=== PATIENT | female | born 2000 | race Caucasian/White ===

== ENCOUNTER 2024-04-21 09:28 | Inpatient (IN) | payer OTHER ==
[~2024-04-21] VITALS: Ht 175.3 cm; Wt 115.7 kg
[2024-04-21 10:17] LABS: BASOPHILS % 0.5 % (0.0-2.0); EOSINOPHILS % 2.8 % (0.0-5.0); HEMATOCRIT. 33.1 % (36.0-48.0); LYMPHOCYTES % 31.5 % (20.0-50.0); MEAN CORPUSCULAR HEMOGLOBIN 28.2 pg (28.0-32.0); MEAN CORPUSCULAR HGB CONC 33.3 g/dL (31.0-37.0); MEAN CORPUSCULAR VOLUME 84.6 fL (81.0-99.0); MEAN PLATELET VOLUME 8.7 fl (7.4-10.4); MONOCYTES % 6.7 % (2.0-8.0); NEUTROPHILS % 58.5 % (40.0-76.0); PLATELET 252 x1000/uL (130-400); RED BLOOD CELL COUNT 3.91 mill/uL (4.2-5.4); RED CELL DISTRIBUTION WIDTH 14.1 % (11.6-14.6); WHITE BLOOD COUNT 5.8 x1000/uL (4.5-11.0)
[2024-04-21 10:21] LABS: CHLORIDE 104 mEq/L (98-107); POTASSIUM 3.6 mEq/L (3.5-5.1); SODIUM 140 mEq/L (136-145)
[2024-04-21 10:22] LABS: CALCIUM 7.1 mg/dL (8.7-10.4); CARBON DIOXIDE 29 mEq/L (21-32)
[2024-04-21 10:27] LABS: CREATININE 0.7 mg/dL (0.6-1.0); GLUCOSE 80 mg/dL (70-105); HCG SCREEN NEGATIVE; UREA NITROGEN BLOOD 8 mg/dL (9-23)
[2024-04-21 10:29] LABS: PHOSPHORUS 5.7 mg/dL (2.5-4.9)
[2024-04-21] MEDS: MAGNESIUM 1 G PREMIX 100 ML IV ONE (12:26)
[2024-04-21] MEDS: CALCIUM GLUCONATE 100MG/ML 10ML VIAL IV ONE (12:31)
[2024-04-21 14:32] LABS: ALANINE AMINOTRANSFERASE < 7 IU/L (10-49); ALBUMIN 3.9 g/dL (3.2-4.8); ASPARTATE AMINOTRANSFERASE 22 IU/L (<34); BILIRUBIN DIRECT 0.2 mg/dL (<=3.0); BILIRUBIN TOTAL 0.6 mg/dL (0.1-1.0); PROTEIN TOTAL 6.4 g/dL (6.0-8.3)
[2024-04-21] MEDS ORDERED: ACETAMINOPHEN 325MG TABLET PO PRN (14:45)
[2024-04-21] MEDS ORDERED: MAGNESIUM/ALUMINUM HYDROXIDE/SIMETHICONE 30ML UDC PO PRN (14:45)
[2024-04-21] MEDS ORDERED: CLONIDINE 0.1MG TABLET PO PRN (14:45)
[2024-04-21] MEDS ORDERED: IPRATROPIUM/ALBUTEROL 0.5-3(2.5)MG/3ML NEB NEB PRN (14:45)
[2024-04-21] MEDS ORDERED: ONDANSETRON HCL 4MG/2ML INJ IV PRN (14:45)
[2024-04-21] MEDS ORDERED: LEVO175T7 PO (20:18)
[2024-04-21] MEDS ORDERED: CALC0.253 PO (20:18)
[2024-04-21] MEDS ORDERED: CALC200T29 PO (20:18)
[2024-04-21] MEDS ORDERED: CALCIUM GLUCONATE 1GM PREMIX 50 ML IV ONE (20:30)
[2024-04-21] MEDS: CALCIUM 1250MG TABLET (500MG ELEMENTAL CALCIUM) PO SCH (21:27)
[2024-04-21 22:30] VITALS: BP 106/51; PULSE 83; RESP 15; TEMP 98
[2024-04-22] VITALS: BP 101/50; PULSE 75; RESP 18; TEMP 98.1
[2024-04-22 04:00] VITALS: BP 114/65; PULSE 60; RESP 18; TEMP 97.7
[2024-04-22] MEDS: LEVOTHYROXINE SODIUM 175MCG TABLET PO SCH (06:00)
[2024-04-22 07:15] LABS: CALCIUM 6.6 mg/dL (8.7-10.4); CHLORIDE 104 mEq/L (98-107); POTASSIUM 3.6 mEq/L (3.5-5.1); SODIUM 141 mEq/L (136-145)
[2024-04-22 07:16] LABS: CARBON DIOXIDE 28 mEq/L (21-32)
[2024-04-22 07:21] LABS: CREATININE 0.6 mg/dL (0.6-1.0); GLUCOSE 84 mg/dL (70-105); UREA NITROGEN BLOOD 9 mg/dL (9-23)
[2024-04-22 07:25] LABS: BASOPHILS % 0.5 % (0.0-2.0); HEMATOCRIT. 28.2 % (36.0-48.0); HEMOGLOBIN. 9.8 g/dL (12.0-16.0); LYMPHOCYTES % 42.8 % (20.0-50.0); MEAN CORPUSCULAR HEMOGLOBIN 28.6 pg (28.0-32.0); MEAN CORPUSCULAR HGB CONC 34.7 g/dL (31.0-37.0); MEAN CORPUSCULAR VOLUME 82.5 fL (81.0-99.0); MONOCYTES % 6.9 % (2.0-8.0); NEUTROPHILS % 45.8 % (40.0-76.0); PLATELET 195 x1000/uL (130-400); RED BLOOD CELL COUNT 3.42 mill/uL (4.2-5.4); RED CELL DISTRIBUTION WIDTH 14.3 % (11.6-14.6); WHITE BLOOD COUNT 5.8 x1000/uL (4.5-11.0)
[2024-04-22 08:00] VITALS: BP 124/68; PULSE 62; RESP 19; TEMP 98
[2024-04-22] MEDS: CALCITRIOL 0.25MCG CAPSULE PO SCH (09:59)
[2024-04-22] MEDS: CALCIUM 1250MG TABLET (500MG ELEMENTAL CALCIUM) PO SCH (10:00)
[2024-04-22] MEDS: MAGNESIUM 2 G PREMIX 50 ML IV NR (11:03)
[2024-04-22] MEDS: CALCIUM GLUCONATE 1GM PREMIX 50 ML IV NR ×3 (11:51→18:07)
[2024-04-22 12:00] VITALS: BP 119/65; PULSE 72; RESP 19; TEMP 97.8
[2024-04-22] MEDS: CALCITRIOL 1MCG/ML AMP IV NR (14:00)
[2024-04-22 16:00] VITALS: BP 121/70; PULSE 68; RESP 21; TEMP 97.7
[2024-04-22] MEDS ORDERED: CALCIUM GLUCONATE IV SCH (16:30)
[2024-04-22] MEDS ORDERED: DEXTROSE 5% IV SCH (16:30)
[2024-04-22] MEDS ORDERED: WATER IV SCH (16:30)
[2024-04-22] MEDS: WATER IV SCH (18:07)
[2024-04-22] MEDS: DEXTROSE 5% IV SCH (18:07)
[2024-04-22] MEDS: CALCIUM GLUCONATE IV SCH (18:07)
[2024-04-22 20:00] VITALS: BP 118/67; PULSE 73; RESP 20; TEMP 97.9
[2024-04-22] MEDS: CALCIUM GLUCONATE 1GM PREMIX 100 ML IV SCH (23:51)
[2024-04-23] VITALS (7 sets, daily range): BP systolic 104–120; BP diastolic 47–70; PULSE 66–71; RESP 17–20; TEMP 97.1–97.9
[2024-04-23 05:50] LABS: CARBON DIOXIDE 30 mEq/L (21-32); CHLORIDE 106 mEq/L (98-107); POTASSIUM 3.6 mEq/L (3.5-5.1); SODIUM 141 mEq/L (136-145)
[2024-04-23 05:56] LABS: CREATININE 0.6 mg/dL (0.6-1.0); GLUCOSE 81 mg/dL (70-105); UREA NITROGEN BLOOD 9 mg/dL (9-23)
[2024-04-23 05:58] LABS: PHOSPHORUS 7.6 mg/dL (2.5-4.9)
[2024-04-23] MEDS: CALCIUM GLUCONATE IV SCH (06:03)
[2024-04-23] MEDS: DEXTROSE 5% IV SCH (06:03)
[2024-04-23] MEDS: WATER IV SCH (06:03)
[2024-04-23 06:24] LABS: BASOPHILS % 0.6 % (0.0-2.0); EOSINOPHILS % 3.3 % (0.0-5.0); HEMATOCRIT. 27.4 % (36.0-48.0); HEMOGLOBIN. 9.5 g/dL (12.0-16.0); LYMPHOCYTES % 45.6 % (20.0-50.0); MEAN CORPUSCULAR HEMOGLOBIN 28.7 pg (28.0-32.0); MEAN CORPUSCULAR HGB CONC 34.6 g/dL (31.0-37.0); MEAN CORPUSCULAR VOLUME 82.7 fL (81.0-99.0); MONOCYTES % 7.1 % (2.0-8.0); NEUTROPHILS % 43.4 % (40.0-76.0); PLATELET 205 x1000/uL (130-400); RED BLOOD CELL COUNT 3.31 mill/uL (4.2-5.4); WHITE BLOOD COUNT 6.1 x1000/uL (4.5-11.0)
[2024-04-23] MEDS ORDERED: CALCITRIOL 0.25MCG CAPSULE PO SCH (09:00)
[2024-04-23] MEDS: CALCIUM 1250MG TABLET (500MG ELEMENTAL CALCIUM) PO SCH (09:25)
[2024-04-23] MEDS ORDERED: CALCIUM GLUCONATE 1GM PREMIX 50 ML IV ONE ×2 (11:30→12:30)
[2024-04-23] MEDS ORDERED: MAGNESIUM 4 G PREMIX 100 ML IV ONE (11:45)
[2024-04-23] MEDS ORDERED: LIDOCAINE HCL 1% 10 MG/ML 10ML VIAL ONE (12:11)
[2024-04-23] MEDS: ACETAMINOPHEN 325MG TABLET PO PRN (14:33)
[2024-04-23] MEDS: CALCIUM GLUCONATE 1GM PREMIX 50 ML IV SCH ×2 (15:03→15:05)
[2024-04-23] MEDS: MAGNESIUM 4 G PREMIX 100 ML IV SCH (15:05)
[2024-04-23] MEDS ORDERED: WATER IV NR (18:30)
[2024-04-23] MEDS ORDERED: CALCIUM GLUCONATE IV NR (18:30)
[2024-04-23] MEDS ORDERED: DEXT 5% IV NR (18:30)
[2024-04-23] MEDS: CALCITRIOL 1MCG/ML AMP IV SCH (23:23)
[2024-04-23 23:27] LABS: CALCIUM 7.3 mg/dL (8.7-10.4)
[2024-04-24] VITALS: BP 108/55; PULSE 62; RESP 20; TEMP 97.6
[2024-04-24] MEDS: CALCIUM GLUCONATE 1GM PREMIX 50 ML IV NR ×2 (02:00→04:16)
[2024-04-24 04:00] VITALS: BP 100/37; PULSE 66; RESP 20; TEMP 97.3
[2024-04-24] MEDS: WATER IV SCH (05:51)
[2024-04-24] MEDS: CALCIUM GLUCONATE IV SCH (05:51)
[2024-04-24] MEDS: DEXTROSE 5% IV SCH (05:51)
[2024-04-24 07:15] LABS: CARBON DIOXIDE 30 mEq/L (21-32); CHLORIDE 103 mEq/L (98-107); POTASSIUM 4.1 mEq/L (3.5-5.1); SODIUM 140 mEq/L (136-145)
[2024-04-24 07:16] LABS: CALCIUM 7.7 mg/dL (8.7-10.4)
[2024-04-24 07:20] LABS: CREATININE 0.7 mg/dL (0.6-1.0)
[2024-04-24 07:21] LABS: GLUCOSE 93 mg/dL (70-105); UREA NITROGEN BLOOD 7 mg/dL (9-23)
[2024-04-24 07:29] LABS: BASOPHILS % 0.5 % (0.0-2.0); EOSINOPHILS % 3.5 % (0.0-5.0); HEMATOCRIT. 28.1 % (36.0-48.0); HEMOGLOBIN. 9.8 g/dL (12.0-16.0); MEAN CORPUSCULAR HEMOGLOBIN 28.9 pg (28.0-32.0); MEAN CORPUSCULAR HGB CONC 34.9 g/dL (31.0-37.0); MEAN PLATELET VOLUME 8.8 fl (7.4-10.4); MONOCYTES % 7.9 % (2.0-8.0); NEUTROPHILS % 43.1 % (40.0-76.0); PLATELET 209 x1000/uL (130-400); RED BLOOD CELL COUNT 3.38 mill/uL (4.2-5.4); RED CELL DISTRIBUTION WIDTH 14.2 % (11.6-14.6); WHITE BLOOD COUNT 5.3 x1000/uL (4.5-11.0)
[2024-04-24 08:00] VITALS: BP 108/62; PULSE 68; RESP 19; TEMP 98
[2024-04-24] MEDS: MAGNESIUM 4 G PREMIX 100 ML IV SCH (09:40)
[2024-04-24 11:13] LABS: CALCIUM 11.9 mg/dL (8.7-10.4)
[2024-04-24 12:00] VITALS: BP 102/60; PULSE 68; RESP 20; TEMP 97.8
[2024-04-24 12:12] LABS: CALCIUM 7.9 mg/dL (8.7-10.4)
[2024-04-24 16:00] VITALS: BP 114/58; PULSE 68; RESP 18; TEMP 97.7
[2024-04-24] MEDS ORDERED: CALC0.253 PO (16:59)
[2024-04-24] MEDS ORDERED: CALC-26 PO (17:29)
[2024-04-24] MEDS ORDERED: CALC0.5C10 PO (17:29)
[2024-04-24 18:02] VITALS: BP 118/60; PULSE 65; TEMP 97.8; O2SAT 99
[2024-04-25] MEDS ORDERED: CALC0.5C10 PO (12:46)
[2024-04-25] MEDS ORDERED: MAGN400T26 PO (12:46)
== END 2024-04-24 18:44 | disposition home or self-care (01) | DRG 641 ==
LOC: ER 09:28 → 5WST 13:49 → EDBEDREQ 14:03 → EDBEDREQTM 14:03 → 7EST 22:51
PROVIDERS: ADMIT Internal Medicine; ATTEND Internal Medicine
PROC: 02HV33Z Insertion of Infusion Device into Superior Vena Cava, Percutaneous Approach (ICD-10-PCS; principal; 2024-04-23)
PROC: B548ZZA Ultrasonography of Superior Vena Cava, Guidance (ICD-10-PCS; 2024-04-23)
PROC: B5181ZA Fluoroscopy of Superior Vena Cava using Low Osmolar Contrast, Guidance (ICD-10-PCS; 2024-04-23)
DX: E83.51 Hypocalcemia (principal); E89.0 Postprocedural hypothyroidism; E83.42 Hypomagnesemia; D64.9 Anemia, unspecified; R20.2 Paresthesia of skin; E66.01 Morbid (severe) obesity due to excess calories; E83.39 Other disorders of phosphorus metabolism; E89.2 Postprocedural hypoparathyroidism; Z68.37 Body mass index [BMI] 37.0-37.9, adult; Z79.899 Other long term (current) drug therapy; Z85.850 Personal history of malignant neoplasm of thyroid; Z88.0 Allergy status to penicillin; Z98.84 Bariatric surgery status
CPT/HCPCS: 36415; 36573; 80047; 80048; 80076; 82306; 82310; 82330; 83735; 83970; 84100; 84443; 84703; 85025; 93005; 99291; C1725; J0610; J0636; J3475; J3490; J7030; J7060; J7070